=== PATIENT | male | born 1950 | race Two or more races ===

== ENCOUNTER 2024-07-19 07:27 | Emergency (ER) | payer MEDICARE, BC, SELFPAY ==
[2024-07-19] VITALS (12 sets, daily range): BP systolic 121–158; BP diastolic 78–97; PULSE 83–98; RESP 11–20; TEMP 36.3–37.1; O2SAT 94–99; BMI 26.6
--- NOTE | 2024-07-19 | XR_ITS ---
Examination: MRI brain without intravenous contrast. Date and time of exam: July 19, 2024 1650 hours Comparison November 04, 2018 INDICATIONS: Onset intractable vomiting, vertigo today, history large left subdural hematoma January 19, 2022,, history right basal ganglia infarct Technique: Multiple axial and sagittal images of the brain obtained. Siemens high-resolution 1.5 Kalie short bore scanners utilized. Sagittal sections, T1-weighted, TR 500, TE 14, are performed. Axial sections proton-density and T2-weighted have been obtained. Inversion recovery axial images, TR 9, 260, TE 111, TI 2500. Diffusion weighted images, axial sections, TR 4800, TE 128, B value 1000 Axial sections, ADC map, TR 4800, TE 128 Findings: Enlargement of the sella turcica is not present. The optic chiasm and infundibular are not remarkable. Prepontine and interpeduncular cisterns are not enlarged. There is no localized enlargement of the medulla or maria guadalupe. Fourth ventricle and cerebellar tonsils appear normal in position. No subacute area of hemorrhage density is seen. Mass in the cerebellopontine angle region is not evident. Globes symmetrical. Orbital musculature including medial lateral rectus muscles do not exhibit abnormality. Diffusion-weighted images demonstrate no focus of restricted diffusion. Increased white matter signal moderate Hyperintense signal external to the left frontal parietal lobe, for instance axial image 18, measuring 3 mm in thickness consistent with small subdural hematoma Mass effect upon the ventricular system is not identified. Impression: Negative for acute hemorrhage mass effect or midline shift No acute infarct Small left subdural hematoma is confirmed, 3 mm in thickness
--- NOTE | 2024-07-19 08:00 | PC.NURSE ---
pt brought in by [facility] was concerned of the color of vomiting since yesterday, pt has hx of stroke with left sided weakness. per ems patricio pt emsis was had signs of blood.
--- NOTE | 2024-07-19 08:20 | PD.EDNV ---
Nausea/Vomit./Diarrhea-RME/HPI General Chief complaint: Nausea/Vomiting/Diarrhea Stated complaint: VOMITTING Time Seen by Provider: 07/19/24 08:14 Arrival date/time: 07/19/24 07:27 RME / HPI RME / HPI Narrative: DR. BOWLES MAIN ED EVALUATION: Patient 74-year-old comes in by EMS for vomiting multiple times the past 24 hours and there was concern that the most latest episode of emesis had blood in it and therefore he was brought in for evaluation. EMS reported that it was dark vomitus but did not feel it was blood. Patient states he has some nausea had some episodes of vertigo possibly in the past 24 hours. He is a diabetic he had a stroke 5 years ago he has some residual left hemiparesis. He has no complaint of new focal weakness. He does report having a very dry mouth and has generalized weakness. He believes he is dehydrated. Related Data Home Medications ?Medication ?Instructions ?Recorded ?Confirmed metformin 1,000 mg tablet 1,000 mg PO BID 08/13/18 11/02/18 pantoprazole 40 mg tablet,delayed 40 mg PO QDAY 08/13/18 11/02/18 release ergocalciferol (vitamin D2) 1,250 50,000 unit PO QWEEK 11/02/18 11/02/18 mcg (50,000 unit) capsule (Vitamin D2) insulin aspart U-100 100 unit/mL 8 unit subcut BID 11/02/18 11/02/18 (3 mL) subcutaneous pen (Novolog FlexPen U-100 Insulin aspart) insulin glargine 100 unit/mL (3 20 unit subcut DAILY 11/02/18 11/02/18 mL) subcutaneous pen (Lantus Solostar U-100 Insulin) clopidogrel 75 mg tablet 75 mg PO DAILY 10/13/21 10/13/21 Previous Rx's ?Medication ?Instructions ?Recorded amlodipine 5 mg tablet 5 mg PO QDAY #8 tabs 11/05/18 aspirin 81 mg tablet,delayed 81 mg PO QDAY #9 tabs 11/05/18 release (Aspir-Low) atorvastatin 20 mg tablet 40 mg (2 x 20 mg) PO HS #6 tabs 11/05/18 fluticasone propionate 50 1 spry NASAL BID #7 grams 11/05/18 mcg/actuation nasal spray,suspension loratadine 10 mg tablet 10 mg PO QDAY PRN Allergy #6 tabs 11/05/18 losartan 25 mg tablet 25 mg PO QDAY #7 tabs 11/05/18 Allergies Allergy/AdvReac Type Severity Reaction Status Date / Time No Known Allergies Allergy Verified 08/13/18 13:14 Review of Systems Review of Systems Narrative Review of Systems: Review of Systems: Constitutional: DENIES: Fevers,; Eyes: DENIES: Loss of vision, Head/Ear/Nose: DENIES: Loss of hearing. Throat: Denies dysphagia. Cardiovascular: Denies chest pain, Dyspnea or syncope. Respiratory: DENIES: Shortness of breath, Gastrointestinal: DENIES: Rectal bleeding or melena. Genitourinary: DENIES: Dysuria (painful or difficult urination),; Musculoskeletal: DENIES: Arthralgia (pain in a joint),; Skin: DENIES: Rash,; Neurological: DENIES: Acute loss of function or movement,; see HPI Psychiatric: DENIES: recent major life stressor, emotional problem, illicit drug use or abuse,; Endocrinology: DENIES: Weight change,; Hematologic/Lymphatic: DENIES: Abnormal bruising. Allergic/Immunologic: DENIES: Urticaria (hives), Past Medical History Past Medical History NEUROLOGIC: Positive Cerebrovascular Accident; Negative Seizures CARDIAC: Positive Cardiac Disorders, Hypercholesterolemia and Hypertension; Negative Congestive Heart Failure RESPIRATORY: Positive Pneumonia and Sleep Apnea; Negative Chronic Obstructive Pulmonary Disease (COPD) or Asthma GASTROINTESTINAL: Positive Gastrointestinal Disorders and Gastroesophageal Reflux Disease GENITOURINARY: Negative Renal Disease ENDOCRINE: Positive Diabetes Mellitus Type 2; Negative Diabetes Mellitus Type 1 HEMATOLOGIC: Negative Blood Disorders or Sickle Cell Disease OTHER HISTORY: Negative Blood Transfusions or Anesthesia Reactions Social History SMOKING STATUS: Never smoker SUBSTANCE USE: does not use ALCOHOL: Never Travel History EBOLA RISK: No ED Exam Narrative Physical exam: Physical Exam: General: The vital signs were reviewed. The patient is non-toxic, in no apparent distress and appears healthy with a patent airway, no respiratory distress and has no apparent circulatory problems. Head & Scalp: Normocephalic, atraumatic. Face: Appears normal and is without lesions, deformity. Ears: Left external pinna appears normal. Right external pinna appears normal. Eyes: The sclera is anicteric. No obvious photophobia. The Left and Right Orbit/Lid/Conjunctiva appears normal without swelling, discoloration or injection. Nose: The nose is without deformity, discharge or tenderness; Throat: Appears normal. The mucous membranes are pink and moist without exudates, redness or mass seen. The tongue appears normal. Neck: The neck is supple and no apparent mass or adenopathy. Chest: The chest wall is normal in size and symmetry and has no chest wall tenderness or crepitus. The patient displays normal ventilator effort without retractions, accessory muscle use and has adequate air movement bilaterally with no wheezes and no rales. Cardiovascular: Regular rate and rhythm; No murmurs, rubs, or gallops; Gastrointestinal: The abdomen appears normal. No obvious hernias or mass. The abdomen is soft and benign, non-distended, with no pain, no guarding and no rebound tenderness. Bowel sounds are present and normal sounding. No CVA tenderness. Genitourinary: Back/Spine: Extremities/Musculoskeletal/lymphatic: The bilateral upper and lower extremities are warm. There is no evidence of arterial insufficiency. There is no evidence of venous insufficiency/edema. The patient spontaneously moves bilateral upper and lower extremities with no pain and no limitation of movement. There is no apparent, injury or trauma. Skin: The skin is warm, dry and intact. No rashes. No petechia. No purpura. No abnormal bruising. The color is appropriate with no cyanosis. Mental status/Psychiatric: Mental status is appropriate for age. The patient has no apparent delusions, visual hallucinations, no apparent audible hallucinations. The patient has no apparent suicidal thoughts/ideation and no apparent homicidal thoughts/ideation. Neurological: The patient is awake, alert, interactive, cordial, cooperative and is oriented to name and situation. The patient follows commands and answers historical question with no impairment. There is no visual disturbance apparent. The pupils are equal and reactive bilaterally with normal eye movements and no diplopia Left arm and leg have some 4/5 weakness right side has normal strength no atrophy The gait, station and balance were not tested due to acuity. Course Quality Measures none Orders Category Date Time Status Bedside COVID-19 Antigen Test NOW Care 07/19/24 13:45 Active Bedside Influenza A&B Antigen Test NOW Care 07/19/24 13:48 Completed Catheter [Urinary Catheter] QS Care 07/19/24 08:27 Active EKG (ED ONLY) *Do not use* NOW Care 07/19/24 08:18 Completed MRI Screening NOW Care 07/19/24 14:44 Active Miscellaneous Nursing Order NOW Care 07/19/24 13:53 Active NPO NOW Care 07/19/24 08:18 Active Referral - Glue Mill Operator Stat Cons 07/19/24 17:42 Active Referral Care Management Routine Cons 07/19/24 17:28 Active Diet NPO (NOW) Diet 07/19/24 08:[address] head/brain wo con Stat Exams 07/19/24 13:55 Completed EKG (ED Only) Stat Exams 07/19/24 08:18 Ordered MR head/brain wo con Stat Exams 07/19/24 Completed B-Type Natriuretic Peptide Stat Lab 07/19/24 08:15 Completed Blood Culture (Lab) Stat Lab 07/19/24 08:15 Received CBC Stat Lab 07/19/24 08:15 Completed Comprehensive Metabolic Panel Stat Lab 07/19/24 08:15 Completed Lactate (Lactic Acid) Stat Lab 07/19/24 09:02 Completed Lactic Acid, 3 HR Stat Lab 07/19/24 12:36 Completed Lipase Stat Lab 07/19/24 08:15 Completed RSV [Respiratory Syncytial Virus Ag] Stat Lab 07/19/24 13:45 Ordered Troponin I Stat Lab 07/19/24 08:15 Completed Urinalysis Stat Lab 07/19/24 08:48 Completed Urinalysis, C/S if Indicated Stat Lab 07/19/24 08:48 Completed Ondansetron Inj [Zofran Inj] Med 07/19/24 08:17 Discontinued 4 mg IV X1 ONE Sodium Chloride 0.9% 1000 ml [Ns] 2,000 ml Med 07/19/24 08:17 Discontinued IV 2,000 mls/hr Vital Signs Vital signs: Vital Signs Temperature 97.5 F 07/19/24 07:37 Pulse Rate 95 07/19/24 07:37 Respiratory Rate 16 07/19/24 07:37 Blood Pressure 152/92 H 07/19/24 07:37 Pulse Oximetry (%) 95 07/19/24 07:37 Oxygen Delivery Method Room Air 07/19/24 07:37 Nausea/Vomiting/Diarrhea MDM Narrative MDM Narrative:: Patient 72-year-old whose has a history of stroke 5 years ago with multiple episodes of vomiting also had some complaints of some vertigo in the past 24 hours although not present now. And was sent to the emergency room for evaluation of an episode of vomitus as it might of had some blood in it. EMS felt there was just dark vomitus and no obvious gross blood. Patient clinically is quite dry and therefore dehydrated. Were given couple liters of fluid work but medically uncertain of the vomitings related to vertigo or some other etiology. Patient does feel some nausea at this time we will give 1 dose of Zofran. Patient got 2 L of fluid is feeling better but still feels weak states he still is got no strength and unable to walk. Son is present states he has been having intermittent vertigo and again is too weak and risk for falling. Note because of his pre-existing left hemiparesis and the new global weakness family is quite concerned. Medical workup today reveals a significant polycythemia interval worsening with a hemoglobin of 17.9 approximately 9 months ago hemoglobin is 14.5. 3 this represents acute dehydration consistent with his very dry mouth and is consistent dark urine despite 2 L of fluid BUN is elevated 26 creatinine 1.2. Sodium 137 potassium 4.2 chloride 95 CO2 26.9 glucose is elevated 365. Transaminases are negative troponin is negative. Lactic acid is 1.3. Urinalysis was specific gravity of 1034 with 3 white cells and 6 red cells. Because of the intractable vomiting and weakness and previous stroke a CT was done which revealed a small left subdural hematoma that is subacute. There was some question whether this could be chronic in nature I talked to the radiologist we also got an MRI because of the intractable vertigo symptoms and the radiologist review down the old films and at [address] Hobbs felt this indeed was a new relatively new subacutely subdural hematoma. Because of that we started working on a transfer and spoke with the transfer nurse. At approximately 1830 hrs. [facility] called back I discussed the case with our transfer nurse and gave them all the details and were waiting for callback to see if they will accept and/or work on further transferring. Note this patient is on Plavix although has been vomiting for 3 days it is unclear if he is actually held on his medicines patient states he is actually not taking it so this might be a contributing factor that actually is not contributing due to the acute illness. He has been quite dehydrated with a polycythemia and responded 2 L of fluid but still is very weak and needs to be admitted and because of the subdural bleed he is to be made someplace that can manage this if there truly is something expanding there. Care signed out to my oncoming doctor at 1847 hrs. I, Patti Multani, am scribing for and in the presence of Dr. Bowles. 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 Interpreted by me: sinus rhythm, rate 99, right bundle branch block, questionable U wave) Lab and/or radiology exams considered but not ordered:: none Interpretation Summary: See above under MDM narrative. RADIOLOGY Procedure(s): CT head/brain wo con Accession Number(s): [id number] cc: Jack Mustafa MD; Hipolito Bowles MD; Yunier Vallejo MD~ Examination: CT brain head without contrast. 2-D sagittal coronal reconstructions Date and time of exam:July 19, 2024 1620 hours Comparison January 19, 2022 INDICATIONS: Onset weakness vertigo today, history subdural hematoma left cerebral hemisphere January 19, 2022 CTDI: vol (mGy):55.7 DLP: (mGycm):1194 Technique: Multiple CT axial sections of the brain have been obtained, 5 mm slice thickness. Contrast has not been administered. 2-D sagittal, coronal reconstructions have been obtained Low dose protocols were performed. One or more of the following dose reduction techniques were used; automated exposure control, adjustment of the mA and/or KV according to patient size, use of iterative reconstruction technique. Findings: Minimal subacute/acute subdural hematoma peripheral to the left cerebral hemisphere, for instance axial image 17, measuring 3 mm in thickness No mass effect from this small subdural Mild ventricular enlargement No intraventricular hemorrhage Fourth ventricle midline No cerebellar tonsil herniation Prominent left maxillary antrum sinus disease IMPRESSION: Minimal subacute acute subdural hematoma peripheral to the left cerebral hemisphere No mass effect Consider short-term follow-up CT brain scan Dictated By: Yunier Vallejo MD Medications / Prescriptions Medications / Prescriptions considered but not ordered:: none Medication administrations:: Medication Administration History Discontinued Medications Sodium Chloride (Ns) 2,000 mls @ 2,000 mls/hr IV .Q1H ONE Stop: 07/19/24 09:16 Last Infusion: 07/19/24 10:51 Dose: Infused Documented By: Admin: 07/19/24 09:03 Dose: 2,000 mls/hr Documented By: BD Ondansetron HCl (Ondansetron Inj 2 Mg/Ml Inj 2 Ml) 4 mg IV X1 ONE Stop: 07/19/24 08:18 Last Admin: 07/19/24 09:02 Dose: 4 mg Documented By: BD see above Consultations Consultation(s) initiated? (list below): Yes Consultation #1 (Physician, Specialty, Details): Discussed head CT finding with Dr. Vallejo, he is going to review old MRI and CT scans and call us back. Time: 17:34 Diagnosis Nausea Differential Diagnosis: traveler's diarrhea, gastroenteritis and dehydration Most likely diagnosis given after review of the tests above:: As noted below. Admission Indicated Admission indicated?: indicated Admission Request Was there a request for admission?: No Disposition Plan Disposition Plan: Transfer Critical Care Time Critical Care Time Critical Care Time: Yes Total Critical Care Time (min.): 55 Attestation: The high probability of sudden, clinically significant deterioration in the patient's condition required the highest level of my preparedness to intervene urgently. The services I provided to this patient were to treat and/or prevent clinically significant deterioration. Services included the following: chart data review, reviewing nursing notes and/or old charts, documentation time, new home sales consultant collaboration regarding findings and treatment options, medication orders and management, direct patient care, vital sign assessments and ordering, interpreting and reviewing diagnostic studies and lab tests. Aggregate critical care time includes only time during which I was engaged in work directly related to the patient's care, as described above, whether at bedside or elsewhere in the Emergency Department. It did not include time spent performing other reported procedures or the services of residents, students, nurses or physician assistants. Discharge Plan Plan Patient Disposition: [facility] Prescriptions/Referrals Prescriptions/Med Rec: No Action pantoprazole 40 mg Tablet,Delayed Release (Dr/Ec) 40 mg PO QDAY metformin 1,000 mg Tablet 1,000 mg PO BID ergocalciferol (vitamin D2) [Vitamin D2] 50,000 unit Capsule 50,000 unit PO QWEEK Lantus Solostar U-100 Insulin 100 unit/mL (3 mL) Insulin Pen 20 unit subcut DAILY Novolog FlexPen U-100 Insulin 100 unit/mL (3 mL) Insulin Pen 8 unit subcut BID atorvastatin 20 mg Tablet 40 mg PO HS Qty: 6 0RF amlodipine 5 mg Tablet 5 mg PO QDAY Qty: 8 0RF aspirin [Aspir-Low] 81 mg Tablet,Delayed Release (Dr/Ec) 81 mg PO QDAY Qty: 9 0RF fluticasone propionate 50 mcg/actuation [place],Suspension 1 spry NASAL BID Qty: 7 0RF loratadine 10 mg Tablet 10 mg PO QDAY PRN (Reason: Allergy) Qty: 6 0RF losartan 25 mg tablet 25 mg PO QDAY Qty: 7 0RF clopidogrel 75 mg tablet 75 mg PO DAILY Patient Comments: TAKE 1 TABLET BY MOUTH EVERY DAY TO PREVENT STROKE Referrals: Jack Mustafa MD [Primary Care Provider] - In 1 week Problem List Clinical Impression: Weakness, Dehydration, moderate, Unable to ambulate, Hemiparesis, left, Polycythemia, Intractable vomiting, Vertigo, Acute subdural hematoma Patient/Caregiver Discharge Instructions Print Language: Albanian Stand Alone Forms: Brandy Award Info., Patient Portal Info Letter
[2024-07-19 09:01] LABS: Collection Type, Urine Catheter
[2024-07-19] MEDS: ONDANSETRON INJ 2 MG/ML INJ 2 ML 4 MG IV (09:02)
[2024-07-19] MEDS: SODIUM CHLORIDE 0.9% 1000 ML 2,000 ML 2000 ML IV (09:03)
[2024-07-19 09:11] LABS: Basophils % (Auto) 0 % (0-2.5); Eosinophils % (Auto) 0 % (0-10); Hematocrit 52.6 % (41.0-53.0); Hemoglobin 17.9 g/dL (13.5-16.0); Immature Granulocytes % (Auto) 0 % (0-0); Immature Granulocytes Auto 0.03 Thou/mm3 (0.00-0.00); Lymphocytes # (Auto) 0.7 Thou/mm3 (1.0-4.8); Lymphocytes % (Auto) 7 % (10-50); Mean Corpuscular Hemoglobin 29.8 pg (25.0-35.0); Mean Corpuscular Volume 88 fL (80-100); Monocytes # (Auto) 0.6 Thou/mm3 (0.0-0.8); Monocytes % (Auto) 6 % (0-12); Neutrophils # (Auto) 8.8 Thou/mm3 (1.8-7.7); Neutrophils % (Auto) 87 % (37-80); Nucleated Red Blood Cell % 0 /100 WBC (0); Platelet Count 236 Thou/mm3 (140-440); Red Blood Count 6.01 Miln/mm3 (4.50-5.90); White Blood Count 10.1 Thou/mm3 (3.8-10.6)
[2024-07-19 09:26] LABS: Lactate (Lactic Acid) 2.4 mMol/L (0.4-2.0)
[2024-07-19 09:26] LABS: Alanine Aminotransferase 12 U/L (10-49); Albumin, Serum 4.8 gm/dL (3.4-4.8); Albumin/Globulin Ratio 1.1 (1.2-2.2); Alkaline Phosphatase 102 U/L (46-116); Anion Gap 15 (7-16); Aspartate Amino Transferase 11 U/L (0-34); BUN/Creatinine Ratio 22 Ratio (12-20); Bilirubin,Total 1.1 mg/dL (0.3-1.2); Blood Urea Nitrogen 26 mg/dL (9-23); Calcium 10.2 mg/dL (8.3-10.6); Calcium (Corrected) 10.2 mg/dL (8.5-10.1); Carbon Dioxide 26.9 mMol/L (20.0-31.0); Chloride 95 mMol/L (98-107); Creatinine (Component) 1.2 mg/dL (0.6-1.3); Estimated Creatinine Clearance 50.2 mL/min (>60); Globulin 4.3 gm/dL (2.3-3.5); Glucose 365 mg/dL (74-106); Lipase 25 U/L (12-53); Osmolality,Calculated 293 (275-295); Potassium 4.2 mMol/L (3.4-5.1); Sodium 137 mMol/L (136-145); Total Protein 9.1 gm/dL (5.7-8.2); Troponin I < 0.020 ng/mL (0.0-0.045); eGFR > 60 See Note
[2024-07-19 09:31] LABS: Bilirubin,Urine Negative (Negative); Blood,Urine Negative (Negative); Clarity,Urine Clear (Clear/Hazy); Color,Urine Yellow (Lt Yel-Yel); Culture Indicated,Urine Not Indicated; Glucose, Urine 4+ (Negative); Hyaline Casts,Urine < 1 /hpf (0-1); Ketones,Urine 2+ (Negative); Leukocyte Esterase,Urine Negative (Negative); Nitrite,Urine Negative (Negative); Protein,Urine 2+ (Neg - Trace); RBC,Urine 6 /hpf (0-3); Specific Gravity,Urine 1.034 (1.001-1.035); Squamous Epithelial Cell,Urine < 1 /hpf (0-5); Urobilinogen,Urine Negative mg/dL (0.0-1.0); WBC,Urine 3 /hpf (0-5)
[2024-07-19 09:54] LABS: B-Type Natriuretic Peptide 71 pg/mL (0-100)
[2024-07-19 12:23] LABS: Reflex Lactate? Y
[2024-07-19 12:48] LABS: Lactic Acid, 3 HR 1.3 mMol/L (0.4-2.0)
--- NOTE | 2024-07-19 13:55 | XR_ITS ---
Examination: CT brain head without contrast. 2-D sagittal coronal reconstructions Date and time of exam:July 19, 2024 1620 hours Comparison January 19, 2022 INDICATIONS: Onset weakness vertigo today, history subdural hematoma left cerebral hemisphere January 19, 2022 CTDI: vol (mGy):55.7 DLP: (mGycm):1194 Technique: Multiple CT axial sections of the brain have been obtained, 5 mm slice thickness. Contrast has not been administered. 2-D sagittal, coronal reconstructions have been obtained Low dose protocols were performed. One or more of the following dose reduction techniques were used; automated exposure control, adjustment of the mA and/or KV according to patient size, use of iterative reconstruction technique. Findings: Minimal subacute/acute subdural hematoma peripheral to the left cerebral hemisphere, for instance axial image 17, measuring 3 mm in thickness No mass effect from this small subdural Mild ventricular enlargement No intraventricular hemorrhage Fourth ventricle midline No cerebellar tonsil herniation Prominent left maxillary antrum sinus disease IMPRESSION: Minimal subacute acute subdural hematoma peripheral to the left cerebral hemisphere No mass effect Consider short-term follow-up CT brain scan
--- NOTE | 2024-07-19 14:08 | PC.NURSE ---
with assistance of cupola repairer was able to stand pt but was not able to ambulate one step became light headed and was not able to support his own weight.
--- NOTE | 2024-07-19 17:58 | PC.CM ---
Addendum entered by Laura Torres RN 07/19/24 19:26: I handed off packet to ED charge nurse. I let them know I called for radiology for CD and they were going to bring it to the ED. Addendum entered by Laura Torres RN 07/19/24 19:08: I took completed packet to ED and handed off. I received a call from Minerva at [facility] and she states she did not receive the MRI of the brain. I let her know I pushed it over 2 times and it shows it sent. I went ahead and set it again. I called [facility] and I let her know that it they call back and it still did not transfer, they need to get a hold of someone from radiology. I know when we had the update to [facility] they were having problems with the MRI were not working. I also let the ED now I called for the CD and they were going to bring it to ED. Addendum entered by Laura Torres RN 07/19/24 18:26: I called radiology and asked that they bring over CD to the ED. I spoke to [facility] and I send call to the ED doctor. Original Note: 1741 I received a referral to transfer patient for neurosurgery for subdural hematoma. I initiated transfer with [facility] and I pushed over images.
--- NOTE | 2024-07-19 18:18 | PD.EDADDENDU ---
Emergency Room Addendum Addendum Narrative: [address] Bowles. Past medical, surgical, social and family history reviewed. Vitals and home medications reviewed. Results and treatment plan discussed. I will assume the care of the patient at this time and will follow the patient, pending work-up and final disposition Please refer to the emergency department record for history and examination from initial visit. The following addendum documentation note is intended to reflect any pending information, findings, or radiology results not included in the patient?s initial chart. Physical exam by me shows patient under no acute distress at this time.
[2024-07-19] MEDS: ACETAMINOPHEN 500 MG TABLET 1000 MG PO (18:45)
--- NOTE | 2024-07-19 21:09 | PC.NURSE ---
nasra phone number florina cha [phone]
--- NOTE | 2024-07-19 22:26 | PC.NURSE ---
JEFF FROM THE [facility] CALLED AND THEIR NEURO PROVIDER DECLINED THE TRANSFER AT THIS TIME. DR. TIWARI IS DECLINING DUE TO NO MIDLINE SHIFT, NO EDEMA AND NO COMPRESSION ON THE SUBDURAL AND THE PT BEING BACK TO THEIR BASELINE.
--- NOTE | 2024-07-19 22:32 | EDNOTE_ITS ---
Emergency Room Addendum Addendum Narrative: 1800: Care assumed from Dr. Bowles, the previous shift emergency physician. Past medical, surgical, social and family history reviewed. Vitals and home medications reviewed. Results and treatment plan discussed. I will assume the care of the patient at this time and will follow the patient, pending transfer. 2228: [facility] declines the patient for transfer. States they do not see any abnormalities on the patient's CT. 0009: Spoke with [facility]'s transfer center. Dr. Faye, their neurointensivist, who accepts the patient for transfer. I then spoke with Dr. Boudreaux, ED physician, who accepts the patient for transfer. Diagnoses: subdural hematoma, vomiting
--- NOTE | 2024-07-20 00:57 | PC.NURSE ---
0018 PT ACCEPTED TO [facility] BY DR RAMOS. REPORT TO .
[2024-07-20 03:05] VITALS: BP 135/86; PULSE 90; RESP 18; O2SAT 95
--- NOTE | 2024-07-20 03:19 | PC.NURSE ---
report called via telephone to nely hanson from [facility]
== END 2024-07-20 03:10 | disposition short-term general hospital (02) ==
PROVIDERS: Emergency Medicine; Emergency Provider Emergency Medicine; PCP Family Medicine
DX: E86.0 Dehydration (principal); S06.5XAA Traumatic subdural hemorrhage with loss of consciousness status unknown, initial encounter; D75.1 Secondary polycythemia
CPT/HCPCS: 51702; 36415; 70450; 70551; 80053; 81001; 83605; 83690; 83880; 84484; 85025; 87040; 87400; 87502; 87634; 87811; 93005; 96361; 96374; 99291; J2405; J7030; A9270

== ENCOUNTER → 2025-01-10 | Outpatient (CLI) | payer MEDICARE, BC, SELFPAY ==
[2025-01-10 09:24] LABS: Collection Type, Urine Clean Catch; Squamous Epithelial Cell,Urine 0 /hpf (0-5)
[2025-01-10 11:28] LABS: Creatinine MALB Rnd Ur 82 mg/dL (30-125); Microalbumin Creat Ratio 396 mg/gCrea (<30); Microalbumin, Random Urine 325 mg/L (0-300)
[2025-01-10 11:31] LABS: Glucose Estimated Average 269 mg/dL (80-131); Hemoglobin A1C 11.0 % Hgb (4.8-6.0)
[2025-01-10 11:44] LABS: Alanine Aminotransferase 9 U/L (10-49); Albumin, Serum 4.3 gm/dL (3.4-4.8); Albumin/Globulin Ratio 1.1 (1.2-2.2); Alkaline Phosphatase 123 U/L (46-116); Anion Gap 10 (7-16); Aspartate Amino Transferase 17 U/L (0-34); BUN/Creatinine Ratio 13 Ratio (12-20); Bilirubin,Total 0.9 mg/dL (0.3-1.2); Blood Urea Nitrogen 15 mg/dL (9-23); Calcium 9.3 mg/dL (8.3-10.6); Calcium (Corrected) 9.3 mg/dL (8.5-10.1); Carbon Dioxide 26.8 mMol/L (20.0-31.0); Cardiac Risk Estimate 4.1 RATIO (4.0-6.7); Chloride 100 mMol/L (98-107); Cholesterol 162 mg/dL (132-200); Creatinine (Component) 1.2 mg/dL (0.6-1.3); Globulin 3.8 gm/dL (2.3-3.5); Glucose 282 mg/dL (74-106); HDL Cholesterol 40 mg/dL (40-60); LDL Cholesterol,Calculated 97 mg/dL (0-130); Osmolality,Calculated 284 (275-295); Potassium 4.2 mMol/L (3.4-5.1); Sodium 137 mMol/L (136-145); Total Protein 8.1 gm/dL (5.7-8.2); Triglycerides 125 mg/dL (30-150); eGFR > 60 See Note
[2025-01-10 11:45] LABS: Basophils # (Auto) 0.0 Thou/mm3 (0.0-0.2); Basophils % (Auto) 1 % (0-2.5); Eosinophils # (Auto) 0.3 Thou/mm3 (0.0-0.5); Eosinophils % (Auto) 6 % (0-10); Hematocrit 46.3 % (41.0-53.0); Hemoglobin 15.8 g/dL (13.5-16.0); Immature Granulocytes Auto 0.03 Thou/mm3 (0.00-0.00); Lymphocytes # (Auto) 1.1 Thou/mm3 (1.0-4.8); Lymphocytes % (Auto) 23 % (10-50); Mean Corpuscular HGB Conc 34.1 g/dl (31.0-37.0); Mean Corpuscular Hemoglobin 29.9 pg (25.0-35.0); Mean Corpuscular Volume 88 fL (80-100); Monocytes # (Auto) 0.4 Thou/mm3 (0.0-0.8); Monocytes % (Auto) 9 % (0-12); Neutrophils # (Auto) 2.8 Thou/mm3 (1.8-7.7); Neutrophils % (Auto) 61 % (37-80); Nucleated Red Blood Cell # 0.00 Thou/mm3 (0.00-0.00); Nucleated Red Blood Cell % 0 /100 WBC (0); Platelet Count 167 Thou/mm3 (140-440); RDW Standard Deviation 50.8 fL (35.1-43.9); Red Blood Count 5.28 Miln/mm3 (4.50-5.90); White Blood Count 4.6 Thou/mm3 (3.8-10.6)
[2025-01-10 11:47] LABS: Bilirubin,Urine Negative (Negative); Blood,Urine Negative (Negative); Clarity,Urine Clear (Clear/Hazy); Color,Urine Yellow (Lt Yel-Yel); Glucose, Urine 4+ (Negative); Ketones,Urine Negative (Negative); Leukocyte Esterase,Urine Positive (Negative); Nitrite,Urine Negative (Negative); PH,Urine 6.0 (5.0-7.0); Protein,Urine 1+ (Neg - Trace); RBC,Urine 4 /hpf (0-3); Specific Gravity,Urine 1.021 (1.001-1.035); Urobilinogen,Urine 4.0 mg/dL (0.0-1.0); WBC,Urine 16 /hpf (0-5)
== END | disposition home or self-care (01) ==
PROVIDERS: PCP Family Medicine; Referring Provider Family Medicine; Visit Provider Family Medicine
DX: E11.65 Type 2 diabetes mellitus with hyperglycemia (principal); N30.00 Acute cystitis without hematuria
CPT/HCPCS: 36415; 80053; 80061; 81001; 82043; 82570; 83036; 85025